=== PATIENT | male | born 1935 | race Caucasian/White ===

== ENCOUNTER → 2021-11-10 | Outpatient (CLI) | payer MEDICARE, BC ==
[~2021-11-10] MED LIST: AMLODIPINE BESY10 MG PO; ASPIRIN81 MG PO; BUMETANIDE1 MG PO; BUMETANIDE2 MG PO; CARVEDILOL6.25 MG PO; CEFUROXIME500 MG PO; ELIQUIS5 MG PO; FLOMAX 0.4 MG0.4 MG PO; IMDUR ER TAB 3030 MG PO; LEVEMIR FL100 UNIT/1 SQ; LEVOTHYROXINE125 MCG PO; POTASSIUM CHLO20 ME2 PO; PRAVASTATIN SOD40 MG PO; ZYLOPRIM 300 M300 MG PO
== END ==
LOC: KOH-I 13:27
DX: I71.4 Abdominal aortic aneurysm, without rupture (principal); I69.359 Hemiplegia and hemiparesis following cerebral infarction affecting unspecified side; I65.23 Occlusion and stenosis of bilateral carotid arteries; I70.0 Atherosclerosis of aorta; N28.1 Cyst of kidney, acquired
CPT/HCPCS: 76775; 93880; 93979